=== PATIENT | male | born 1955 | race Caucasian/White ===

== ENCOUNTER → 2017-11-16 08:58 | Outpatient (CLI) | payer OTHER, SELFPAY ==
--- NOTE | 2017-11-16 09:04 | RAD_ITS ---
STUDY: X-RAY CHEST REASON FOR EXAM: Male, 62 years old. Mild intermittent asthma. TECHNIQUE: PA and lateral views of the chest. COMPARISON: June 11, 2015. FINDINGS: The lungs are clear and expanded. There is no demonstrated pleural abnormality. Normal size heart. Normal mediastinum and subha. Normal visualized pulmonary arteries. Normal visualized aortic arch and descending thoracic aorta. Normal visualized thoracic spine. Normal visualized ribs, clavicles, and shoulders. There is no demonstrated abnormality of the visualized soft tissue structures of the upper abdomen. RAD/Chest PA and Lateral IMPRESSION: No acute cardiopulmonary disease or major interval change. Electronically Signed: Andrei Magallanes DO at 17:03 EDT Tel [phone], Service support ,
== END ==
PROVIDERS: Family Provider Internal Medicine; PCP Internal Medicine; Visit Provider Internal Medicine
DX: J45.20 Mild intermittent asthma, uncomplicated (principal)
CPT/HCPCS: 71046

== ENCOUNTER → 2018-03-09 06:31 | Outpatient (CLI) | payer OTHER, SELFPAY ==
--- NOTE | 2018-03-09 07:00 | MRI_ITS ---
STUDY: MRI BRAIN WITH AND WITHOUT CONTRAST (ATTENTION INTERNAL AUDITORY CANALS - I.A.C.'s) REASON FOR EXAM: Male, 62 years old. Left ear tinnitus and pain TECHNIQUE: Standardized multiplanar fat and water weighted pulse sequences were obtained. 9 ml of Gadavist contrast material was administered intravenously for the contrast portion of the examination. COMPARISON: None. FINDINGS: Normal bilateral temporal bones. Normal bilateral internal auditory canals. There is no demonstrated intracanalicular or cisternal vestibular schwannoma (acoustic neuroma). There is no enhancement of the bilateral VIIth or VIIIth cranial nerves. Normal bilateral cochlea, vestibules and semicircular canals. Normal size of the ventricles and extra-axial spaces for the patient's age. Normal white matter tracts of the supratentorial brain. Normal bilateral basal ganglia. Normal thalami. Normal flow voids within the major intracranial circulation suggesting patency by spin echo criteria. Normal venous enhancement. There is no enhancing intra-axial or extra-axial abnormality. There is no extra-axial fluid accumulation. Normal sella turcica, pituitary gland, infundibular stalk, optic chiasm and hypothalamus. Normal tectal plate and pineal gland. Normal midbrain, cheyanne and medulla. Normal cerebellum. Normal basal cisterns. No demonstrated orbital abnormality, within the constraints of a routine brain study. Mild mucosal thickening within the bilateral ethmoid air cells Normal calvarium and skull base. Normal visualized soft tissue structures. Normal visualized upper cervical spine. MRI/Brain W/WO Contrast IMPRESSION: Normal unenhanced and enhanced MRI of the bilateral internal auditory canals (I.A.C's). Minor bilateral ethmoid sinus disease Electronically Signed: Ray Nj MD at 19:57 EDT , Service support ,
== END ==
PROVIDERS: Family Provider Internal Medicine; PCP Internal Medicine; Visit Provider Internal Medicine
DX: H93.12 Tinnitus, left ear (principal)
CPT/HCPCS: 70553; A9585

== ENCOUNTER → 2018-11-03 07:33 | Outpatient (CLI) | payer OTHER, SELFPAY ==
--- NOTE | 2018-11-03 07:37 | CT_ITS ---
STUDY: CT ABDOMEN AND PELVIS WITH CONTRAST REASON FOR EXAM: Male, 63 years old. Lower abdominal pain RADIATION DOSAGE (If Supplied By Facility): CTDIvol = ( 18.72 ) mGy, DLP = ( 1036.25 ) mGycm TECHNIQUE: Transaxial images were obtained from the dome of the diaphragm to the symphysis pubis without oral contrast. 100CC IV/Oral Isovue 300 was administered. Sagittal and coronal images were reconstructed. Individualized dose optimization techniques were used for this CT. COMPARISON: None. FINDINGS: The visualized lung bases are unremarkable. The visualized portions of the heart are within normal limits. Normal liver. Normal gallbladder and extrahepatic biliary system. Normal spleen. Lobulated large mass measuring 8 x 7 cm at the head of the pancreas. Normal bilateral adrenal glands. Normal right kidney. 3 mm nonobstructive stone in the left kidney. Normal visualized stomach. Normal small intestine. Diverticulosis of the colon. The appendix is visualized and appears normal. Normal abdominal aorta. Normal inferior vena cava. Normal retroperitoneum. Normal urinary bladder. Normal abdominal wall. Mild degenerative vertebral changes. CT/Abdomen/Pelvis WITH Contrast IMPRESSION: Large pancreatic head mass requiring further evaluation. Nonobstructive left renal stone. Colonic diverticulosis. Electronically Signed: Neel Duff DO at 19:16 EDT Tel [phone], Service support ,
== END ==
PROVIDERS: Family Provider Internal Medicine; PCP Internal Medicine; Referring Provider Internal Medicine; Visit Provider Internal Medicine
DX: R10.30 Lower abdominal pain, unspecified (principal)
CPT/HCPCS: 74177; Q9967

== ENCOUNTER → 2018-11-21 05:47 | Outpatient (CLI) | payer OTHER, SELFPAY ==
--- NOTE | 2018-11-21 06:00 | CT_ITS ---
STUDY: CT CHEST WITH CONTRAST REASON FOR EXAM: Male, 63 years old. Pancreatic mass. RADIATION DOSAGE (If Supplied By Facility): CTDIvol = ( 17.33 ) mGy, DLP = ( 786.82 ) mGycm TECHNIQUE: Transaxial imaging was performed following intravenous administration of 100cc IV Isovue 300. Individualized dose optimization techniques were used for this CT. COMPARISON: CT abdomen and pelvis November 03, 2018. Chest x-ray November 16, 2017 and June 11, 2015. FINDINGS: The lungs are normal. There is no demonstrated pleural abnormality. The heart is not enlarged. Coronary artery calcifications. No pericardial effusion. Normal mediastinum. Small mediastinal lymph nodes which are not pathologic by size criteria. Normal hilar regions. Normal enhanced pulmonary arteries. Normal aorta arch and descending thoracic aorta. Normal osseous structures. Postoperative changes left shoulder. Questionable 0.9 x 0.9 cm low-attenuation lesion in the junction right and left lobes of the liver which does not represent a simple cyst. If present this lesion was not seen on the prior CT scan. The abnormality is identified on axial image 111 series 2. Again noted is a large lobulated pancreatic head mass. CT/Chest WITH Contrast IMPRESSION: No acute findings in the chest. Coronary artery calcifications. Questionable subcentimeter low-attenuation lesion at the junction of the right and left lobes of the liver. Correlate with ultrasound. Previously identified large pancreatic head mass. Electronically Signed: Augie Cisneros MD at 7:45 EDT , Service support ,
[2018-11-21 06:11] LABS: CREATININE FINGERSTICK 1.4 mg/dL (0.70-1.30)
== END ==
PROVIDERS: Family Provider Internal Medicine; PCP Internal Medicine; Referring Provider Internal Medicine; Visit Provider Internal Medicine
DX: K86.9 Disease of pancreas, unspecified (principal)
CPT/HCPCS: 71260; Q9967

== ENCOUNTER → 2019-07-05 15:24 | Outpatient (CLI) | payer OTHER, SELFPAY ==
[2019-07-05 16:25] LABS: AST(SGOT) 20 U/L (15-37); Alanine Aminotransfer ALT/SGPT 44 U/L (16-61); Albumin, Serum 3.6 g/dL (3.2-5.0); Alkaline Phosphatase 109 U/L (45-117); Anion Gap 5 (5-15); BUN 12 mg/dL (7-18); BUN/Creat Ratio 16.6 RATIO (10-20); Calcium,Total 8.4 mg/dL (8.5-10.1); Chloride 106 mmol/L (98-107); Creatinine, Serum 0.72 mg/dL (0.70-1.30); EST Glomerular Filtration Rate 116 mL/min (>60); Est Glom Filt Rate - Afr Amer 140 mL/min (>60); Globulin 3.6 g/dL (2.2-4.2); Glucose 91 mg/dL (74-106); Potassium 3.8 mmol/L (3.5-5.1); Protein, Total 7.2 g/dL (6.4-8.2); Sodium Level 139 mmol/L (136-145)
== END ==
PROVIDERS: Family Provider Internal Medicine; PCP Internal Medicine; Referring Provider Internal Medicine; Visit Provider Internal Medicine
DX: R94.31 Abnormal electrocardiogram [ECG] [EKG] (principal)
CPT/HCPCS: 80053; 84484

== ENCOUNTER → 2019-09-12 10:18 | Outpatient (CLI) | payer OTHER, SELFPAY ==
[2019-09-12 13:00] LABS: Absolute Lymphocyte Count 1.13 X10^3/uL (0.83-4.51); Absolute Neutrophil Count 4.6 X10^3/uL (2.0-7.7); Basophil# 0.07 X10^3/uL; Basophil% 1.1 % (0-1); Eosinophil# 0.15 X10^3/uL; Eosinophils% 2.3 % (0-5); Hematocrit 43.6 % (40-54); Hemoglobin 14.2 g/dL (13.0-16.5); Lymphocyte # 1.13 X10^3/ul (4.0); Lymphocyte % 17.5 % (19-41); Mean Corp Hgb Conc 32.6 g/dL (32-36); Mean Corpuscular Hgb 36.9 pg (27.0-32.0); Mean Corpuscular Volume 113.2 fL (80-94); Mean Platelet Vol. 9.9 fl (6.2-12.0); Monocyte# 0.47 X10^3/uL; Monocyte% 7.3 % (0-10); NRBC Flagged by Analyzer 0 % (0-5); Neutrophil # 4.63 X10^3/uL (2.7-7.7); Neutrophil % 71.5 % (47-70); Platelet Count 375 K/mm3 (150-450); RBC Distribution Width CV 14.4 % (11.6-14.6); RBC Distribution Width SD 60.8 fl (35.1-43.9); Red Blood Count 3.85 M/mm3 (4.6-6.2); White Blood Count 6.5 K/mm3 (4.4-11.0)
[2019-09-12 13:36] LABS: ALB/GLOB Ratio 1.1 RATIO (0.9-2.4); AST(SGOT) 19 U/L (15-37); Alanine Aminotransfer ALT/SGPT 38 U/L (16-61); Albumin, Serum 3.7 g/dL (3.2-5.0); Alkaline Phosphatase 94 U/L (45-117); Anion Gap 4 (5-15); BUN 10 mg/dL (7-18); BUN/Creat Ratio 12.4 RATIO (10-20); Chloride 103 mmol/L (98-107); EST Glomerular Filtration Rate 103 mL/min (>60); Est Glom Filt Rate - Afr Amer 124 mL/min (>60); Globulin 3.4 g/dL (2.2-4.2); Glucose 92 mg/dL (74-106); Potassium 4.3 mmol/L (3.5-5.1); Protein, Total 7.1 g/dL (6.4-8.2); Sodium Level 136 mmol/L (136-145)
[2019-09-15 05:06] LABS: QNTFERON TB Mitogen Value > 10.00 IU/mL (.); QNTFERON TB Nil Value 0.01 IU/mL (.); QNTFERON TB1+ Ag Value 0.02 IU/mL (.); QNTFERON TB2+ Ag Value 0.01 IU/mL (.)
[2019-09-15 11:28] LABS: QNTIFERON TB Positive Criteria Negative (Negative)
== END ==
PROVIDERS: PCP Internal Medicine; Referring Provider Dermatology; Visit Provider Dermatology
DX: L40.0 Psoriasis vulgaris (principal); Z79.899 Other long term (current) drug therapy
CPT/HCPCS: 36415; 80053; 85025; 86480

== ENCOUNTER → 2020-01-23 11:38 | Outpatient (CLI) | payer OTHER, SELFPAY ==
--- NOTE | 2020-01-23 11:39 | RAD_ITS ---
STUDY: X-RAY - RIGHT SHOULDER REASON FOR EXAM: Male, 64 years old. Right shoulder pain, nki TECHNIQUE: 4 view(s) of the shoulder. COMPARISON: None. FINDINGS: There is moderate degenerative arthrosis of the glenohumeral articulation. Normal acromioclavicular joint. Normal acromion. Normal humeral head and visualized proximal humerus. The soft tissue structures are unremarkable. Right subclavian port free of complication RAD/Shoulder min 2 Views IMPRESSION: Moderate to severe right glenohumeral arthrosis Electronically Signed: Antony Bonner MD at 11:58 EDT , Service support ,
== END ==
PROVIDERS: PCP Internal Medicine; Referring Provider Internal Medicine; Visit Provider Internal Medicine
DX: M19.011 Primary osteoarthritis, right shoulder (principal)
CPT/HCPCS: 73030

== ENCOUNTER 2020-03-18 15:00 | Outpatient (RCR) | payer OTHER, SELFPAY ==
--- NOTE | 2020-01-30 10:58 | HP.PTEVAL_ITS ---
Patient's Visit Information YEISON COYNE is a 64 year old M referred to Physical Therapy by Dr. Lorna Loomis DO with a diagnosis of R frozen shoulder. Date of Evaluation: 01/30/20 Physical Therapist: Brett Nickerson, JAUNT, OCS, CSCS - Visit Plan Frequency: 3x /Week Duration: 4-6 Weeks Plan: 2-3x/week for 4-6 weeks for. 1. grade 1-2 joint mobs and distraction R g- h joint and grade 4 posterior mobs to tolerance. 2. ROM R shoulder. 3. 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 4. US nonthermal as needed R anterior shoulder. 5. activitiy mdofiication and MH - Subjective R shoulder hurts, 3 yrs ago felt sharp pain hrowing some firewood. Some ain since. The last year has gotten worse. H/o L RCR. Started to keep him up at night and that is when he needs to take action. Needs advy pm. Daily pain, constant, anterior shoulder 3/10 , gets up to 10/10 lifting arm. needs to walk up cabinet to put deodorant on. Is R handed. 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 Enjoys biking and lifting and stilld oes some of that at home with Oh yo machine resistance. Snaps and crackles when he stretches. Dresses Ok, sometimes pulls shirt over arm. Basic ADLs are gettign done, hard to reach behind him. Limited mobility. H/o impingememnt in R and sharp bone rubbing on tendons. - Pain R shoulder Pain Intensity (Out of 10): 3 Pain Intensity Range: 3, 10 - Objective Forward head and scap posture. Tender to palpation anterior joint line R shoulder. AROM R shoulder 120 flexion, 100 abd, 60 ext rotation and 45 IR at 80 abd. Passively numbers are flexion 150, abd 130, ext rot 65 adn IR 48. L shoulder is limited due to h/u RC surgery. Lots of crepitus in R shoulder iwth PROM and resisted testing. reflexes 1/3 bi and tri B. No sensation deficits to gross light touch. strength is 4- in abd and flexion, 3+ in ext rotation with crepitus, 4- IR. 4 bi and tric no pain. - ext rotation lag test. - drop arm. + R g-h scour test. - Goals Goal 1:: sleep without waking at night Goal Time Frame: 2-4 Weeks Goal 2:: UE R AROM to 140 flexion and 70 ext rotation without pain and 50% better subjectively Goal Time Frame: 4-6 Weeks Goal 3:: Quick Dash of 15 or less Goal Time Frame: 4-6 Weeks Goal 4:: I approp HEPO to manage condition Goal Time Frame: 4-6 Weeks - Rehabilitation Potential Physical Therapy Diagnosis: Likely degeneration in R shoulder leading to pain. Rehabilitation Potential: Questionable - Anticipated Interventions Patient/Client Instruction: Educate patient on: Condition, Plan of Care For the Purpose of:: To decrease pain, To increase ROM, To improve muscle performance and motor function, To increase tolerance to activity/condition/position Therapeutic Exercise to Include: Strength training, Postural training, Fl exibilty training, Neuromotor development, Passive ROM, Active ROM For the Purpose of:: To decrease pain, To increase ROM, To improve muscle performance and motor function, To increase tolerance to activity/condition/position Manual Therapy Techniques to Include: Mobilization, Passive ROM For the Purpose of:: To decrease pain, To increase ROM Thermo therapy (hot pack): Yes Ultrasound (thermal/non thermal): Yes For the Purpose of:: To decrease pain, To decrease swelling/inflammation Thank you for the opportunity to evaluate your patient. For Medicare and Medicare HMO plans, please review the plan of care and approve it. It will need to be FAXED BACK to us at [phone] for Medicare purposes. For Medicare only, by signing this I certify the plan of care. Please let me know if there are questions or concerns regarding this plan of care. Physician Signature: Date:
--- NOTE | 2020-03-18 15:33 | HP.PTREVAL_ITS ---
Dr. Lorna Loomis, DO, It has been my pleasure to treat YEISON COYNE over the last 9 visits for R frozen shoulder. Please see the progress note below for an update on the physical therapy plan of care! Subjective: Shoulder not 100%. Better though. Getting stronger adn more functional. can shampoo hair better, deodorant is easier. Elevation is better but not great. Has been tandem biking [address] and it does make shoulder sore. Saw Vladislav two weeks ago and wanted to finish therapy and get recommendation. Reaching up is still a challenege and walks it up the wall. Push mowing can still cause pain. Sleep is better with management of postiion. Objective/Function: AROM 120 flexion, 90 abd, 70 ext rotation, L5 IR tight feeling. PROM 152 flexion, 120 abduction, 70 et rotation, 50 IR at 90 abd all iwth firm endfeel and alot of crepitus. Strength is 4- flexion, 4- ext rotation, 4 IR, Painful with flexion and abduction. Overall slightly improved measurements, improving function adn appropriate attitude. Likely much degeneration in shoulder adn I don't see evidence of tear on R. Appropriate to continue for progression of strengtha dn continued stretch. Fair prognosis Plan Plan: 2x week for 4 weeks... 1. mobs and stretching R shoulder rotations and flexion/abd. 2. Spend time in gym teaching posturala dn upper body strength adn core strength on machines and progress to I. Pt can do LE himself and ask questions if he has them. Work toward full progream with list. Goals Goal 1:: sleep without waking at night Goal Time Frame: 2-4 Weeks Goal Progress: Progressing, approp Goal 2:: UE R AROM to 140 flexion and 70 ext rotation without pain and 50% better subjectively Goal Time Frame: 4-6 Weeks Goal Progress: Progressing, slowly, appr Goal 3:: Quick Dash of 15 or less Goal Time Frame: 4-6 Weeks Goal Progress: progressing, approp Goal 4:: I approp HEPO to manage condition Goal Time Frame: 4-6 Weeks Goal Progress: Goal Met Goal 5:: I gym program to continue progress on own Goal Time Frame: 2-4 Weeks Goal Progress: NEW GOAL Anticipated Interventions Patient/Client Instruction: Educate patient on: Condition, Plan of Care For the Purpose of:: To decrease pain, To increase ROM, To improve muscle perf ormance and motor function, To increase tolerance to activity/condition/position Therapeutic Exercise to Include: Strength training, Postural training, Flexibilty training, Neuromotor development, Passive ROM, Active ROM For the Purpose of:: To decrease pain, To increase ROM, To improve muscle performance and motor function, To increase tolerance to activity/condition/position Manual Therapy Techniques to Include: Mobilization, Passive ROM For the Purpose of:: To decrease pain, To increase ROM Thermo therapy (hot pack): Yes Ultrasound (thermal/non thermal): Yes For the Purpose of:: To decrease pain, To decrease swelling/inflammation Please do not hesitate to contact me at [phone] by phone or if you have questions or concerns regarding this new plan of care! Sincerely, Brett Nickerson, DPT, OCS, CSCS
--- NOTE | 2020-04-03 14:58 | HP.PT.NRP ---
YEISON COYNE was seen in my office for initial evaluation on 01/30/20. The following Plan of Care was established for this patient: Initial Frequency: 3x /Week Initial Duration: 4-6 Weeks Patient/Client Instruction: Educate patient on: Condition, Plan of Care For the Purpose of:: To decrease pain, To increase ROM, To improve muscle performance and motor function, To increase tolerance to activity/condition/position Therapeutic Exercise to Include: Strength training, Postural training, Flexibilty training, Neuromotor development, Passive ROM, Active ROM For the Purpose of:: To decrease pain, To increase ROM, To improve muscle performance and motor function, To increase tolerance to activity/condition/position Manual Therapy Techniques to Include: Mobilization, Passive ROM For the Purpose of:: To decrease pain, To increase ROM Thermo therapy (hot pack): Yes Ultrasound (thermal/non thermal): Yes For the Purpose of:: To decrease pain, To decrease swelling/inflammation This patient was last seen in our office 03/18/20. Pertinent comments regarding their Physical therapy will appear below: Pt seen 90 visits and was 40% better but still very painful in the shoulder. Sent back to [facility] for further diagnostics. Had MRI and has tendon tears and sent to Dr. Hannon. Will discontinue PT at this point. Would be happy to see again in the future if found appropriate by Ortho. At this point I will be discontinuing this patient from physical therapy. I would be happy to see this patient again in the future if found appropriate by the physician. Thank you! Brett Nickerson, DPT, OCS, CSCS
== END 2020-03-18 19:00 | disposition home or self-care (01) ==
LOC: PT 15:00
PROVIDERS: PCP Internal Medicine; Referring Provider Internal Medicine; Visit Provider Internal Medicine
DX: M75.01 Adhesive capsulitis of right shoulder (principal)
CPT/HCPCS: 97110; 97140; 97162; 97164

== ENCOUNTER → 2020-03-29 10:57 | Outpatient (CLI) | payer OTHER, SELFPAY ==
--- NOTE | 2020-03-29 11:02 | MRI_ITS ---
STUDY: MRI RIGHT SHOULDER REASON FOR EXAM: Right shoulder pain for 3 years, decreased range of motion, injury. TECHNIQUE: Standardized fat and water weighted pulse sequences were obtained in all 3 orthogonal planes. COMPARISON: Radiographs 01/23/2020. FINDINGS: There is supraspinatus tendinosis and a small high-grade partial thickness tear of the articular surface of the distal anterior supraspinatus tendon at the greater tuberosity insertion (T2 coronal image 13) measuring 0.25 cm in length. There is infraspinatus tendinosis (T2 coronal images 5-7) without discrete tendon tear. There is mild subscapularis tendinosis and a small intrasubstance partial-thickness tear of the distal supraspinatus tendon (proton-density axial images 13, 14) measuring 0.7 cm in length. Normal teres minor tendon. Normal supraspinatus muscle. There is a low-grade strain of the infraspinatus muscle (T2 coronal images 1, 2). Normal subscapularis muscle. Normal teres minor muscle. There is glenohumeral arthrosis with marginal osteophytes of the humeral head and chondral thinning (T2 coronal images 7-12). There is a glenohumeral joint effusion with synovitis, especially at the posterior aspect of the joint (T2 sagittal images 12-14). There is a small intra-articular body in the subscapularis recess (T2 axial image 12) measuring 0.7 cm in greatest dimension. There is mild cystic change of the greater tuberosity. There is incidental persistence of red marrow in the proximal humerus. There is a tear with nonvisualization of the intracapsular long biceps tendon. There is degeneration of the labrum. There is mild acromioclavicular arthrosis without substantial undersurface osteophytes (T2 sagittal image 12). There is a Type II morphology (curved), with a neutral orientation. There is no subacromial-subdeltoid bursal fluid. Normal visualized coracohumeral and coracoacromial ligaments. Normal deltoid muscle. Normal trapezius muscle. MRI/Upper Ext Joint Only(Routine) IMPRESSION: Small partial-thickness tear and tendinosis of the supraspinatus tendon. Small intrasubstance partial-thickness tear and mild tendinosis of the subscapularis tendon. Infraspinatus tendinosis. Low-grade strain of the infraspinatus muscle. Glenohumeral arthrosis with degeneration of the labrum and small intra-articular body of the subscapularis recess. Tear of the long biceps tendon. Mild acromioclavicular arthrosis. Glenohumeral joint effusion with synovitis. Electronically Signed: Emir Ramírez MD at 12:25 EDT Tel , Service support ,
== END ==
PROVIDERS: PCP Internal Medicine; Referring Provider Internal Medicine; Visit Provider Internal Medicine
DX: M75.00 Adhesive capsulitis of unspecified shoulder (principal)
CPT/HCPCS: 73221

== ENCOUNTER → 2020-11-06 09:55 | Outpatient (CLI) | payer OTHER, SELFPAY ==
[2020-11-06 12:30] LABS: Hematocrit 39.3 % (40-54); Hemoglobin 13.1 g/dL (13.0-16.5); Mean Corp Hgb Conc 33.3 g/dL (32-36); Mean Corpuscular Hgb 39.5 pg (27.0-32.0); Mean Corpuscular Volume 118.4 fL (80-94); Mean Platelet Vol. 9.4 fl (6.2-12.0); POSITIVE MORPHOLOGY YES; Platelet Count 528 K/mm3 (150-450); RBC Distribution Width CV 15.2 % (11.6-14.6); RBC Distribution Width SD 66.5 fl (35.1-43.9); Red Blood Count 3.32 M/mm3 (4.6-6.2); White Blood Count 3.4 K/mm3 (4.4-11.0)
[2020-11-06 12:31] LABS: Scan Indicated on CBC? Y/N YES- FLAGS NOTED
[2020-11-06 13:16] LABS: Ferritin 84 ng/mL (26-388); Iron 95 ug/dL (65-175)
[2020-11-07 16:08] LABS: Endomysial Antibody IgA Negative (Negative)
[2020-11-07 18:42] LABS: Immunoglobulin A 274 mg/dL (61-437); t-Transglutaminase IgA <2 U/mL (0-3)
== END ==
PROVIDERS: PCP Internal Medicine; Referring Provider Internal Medicine Gastroenterology; Visit Provider Internal Medicine Gastroenterology
DX: D50.9 Iron deficiency anemia, unspecified (principal)
CPT/HCPCS: 36415; 82728; 82784; 83516; 83540; 85027; 86255

== ENCOUNTER → 2020-11-11 13:47 | Outpatient (CLI) | payer OTHER, SELFPAY | PROVIDERS: PCP Internal Medicine; Referring Provider Internal Medicine Gastroenterology; Visit Provider Internal Medicine Gastroenterology | DX: Z11.59 Encounter for screening for other viral diseases (principal) | CPT/HCPCS: 87635; C9803; U0002 ==

== ENCOUNTER → 2020-11-13 13:22 | Outpatient (CLI) | payer OTHER, SELFPAY ==
--- NOTE | 2020-11-13 13:23 | CT_ITS ---
STUDY: CTA CHEST REASON FOR EXAM: Male, 65 years old. ELEVATED D-DIMER RADIATION DOSAGE (If Supplied By Facility): CTDIvol = ( 10.97 ) mGy, DLP = ( 411.24 ) mGycm TECHNIQUE: The examination was performed with the intravenous administration of IV 100mL Isovue-370. Post-processing of the angiographic images was performed, with multiplanar reformation and 3D reconstruction. Individualized dose optimization techniques were used for this CT. COMPARISON: 11/21/[address] of the abdomen dated 11/03/2018 FINDINGS: Normal enhancement of the main pulmonary artery and right and left pulmonary arteries. Normal enhancement of the bilateral peripheral pulmonary arteries. There is no demonstrated pulmonary embolism. There is atherosclerotic calcification of the aortic arch and descending thoracic aorta. There is no demonstrated aortic dissection. There are calcifications of the coronary arteries. Normal mediastinum. Normal hilar regions. Normal visualized trachea and bronchi. There are stable subpleural groundglass opacities within the lower lobes. There is no new focal consolidation. Normal chest wall structures. There are degenerative changes of thoracic spine. There is a right shoulder arthroplasty. There are postsurgical changes of the left humeral head. The limited images of the upper abdomen demonstrate a 4.3 x 5.7 cm partially cystic mass within the pancreatic head that has decreased in size since the prior CT. There are two indeterminate 1.0 low attenuation foci within the left hepatic lobe (image 28 series 2). There are peripheral calcifications of the abdominal aorta. CT/CTA Chest W/WO Contrast IMPRESSION: No demonstrated pulmonary embolism or arterial dissection. 4.3 x 5.7 cm pancreatic head mass which has decreased in size since prior CT dated 11/21/2018. Indeterminate low-attenuation foci within the left hepatic lobe, consider MRI with contrast for further characterization. Atherosclerosis. Electronically Signed: Effie Chacko MD at 14:45 EDT Tel , Service support ,
== END ==
PROVIDERS: PCP Internal Medicine; Referring Provider Internal Medicine; Visit Provider Internal Medicine
DX: R79.89 Other specified abnormal findings of blood chemistry (principal)
CPT/HCPCS: 71275

== ENCOUNTER 2021-05-20 16:26 | Inpatient (IN) | payer OTHER, MEDICARE, SELFPAY ==
[2021-05-20] VITALS (22 sets, daily range): BP systolic 85–179; BP diastolic 57–164; PULSE 62–135; RESP 7–102; TEMP 36.1–36.8; O2SAT 89–100; BMI 25.1; BMI 26.6
--- NOTE | 2021-05-20 16:30 | ED.RN ---
UNABLE TO DO NIH AT THIS TIME, DR PEDRO PT.
[2021-05-20] MEDS: Rocuronium Bromide 50 MG/5 ML Vial IV (16:37)
[2021-05-20] MEDS: Etomidate 20 MG/10 ML Vial IV (16:37)
--- NOTE | 2021-05-20 16:37 | CT_ITS ---
We are attempting to reach an attending provider to discuss findings. An addendum with communication details will be sent when the communication is complete. STUDY: CT BRAIN WITHOUT CONTRAST REASON FOR EXAM: Male, 66 years old. CVA RADIATION DOSAGE (If Supplied By Facility): CTDIvol = ( ) mGy, DLP = ( ) mGycm TECHNIQUE: Transaxial CT imaging of the brain was performed without administration of intravenous contrast material. Individualized dose optimization techniques were used for this CT. COMPARISON: MRI brain 03/09/2018. FINDINGS: Normal soft tissue structures. Normal calvarium. There is mild cerebral atrophy with widening of the extra-axial spaces and ventricular dilatation. Normal white matter tracts of the cerebral hemispheres. Normal basal ganglia and thalami. Normal brainstem. Normal cerebellum. There is no intracranial hemorrhage. No acute territorial infarct. Chronic left cerebellar infarcts. Normal visualized paranasal sinuses. CT/STROKE Brain/Head without Cont IMPRESSION: 1. No acute findings. 2. Chronic left cerebellar lacunar infarcts. Electronically Signed: Suyapa Padilla MD at 17:06 EDT Tel , Service support ,
--- NOTE | 2021-05-20 16:42 | EKG12_ITS ---
Test Reason : Blood Pressure : / mmHG Vent. Rate : 084 BPM Atrial Rate : 084 BPM P-R Int : 192 ms QRS Dur : 092 ms QT Int : 358 ms P-R-T Axes : 041 -61 -04 degrees QTc Int : 423 ms Normal sinus rhythm Left axis deviation Low voltage QRS Inferior infarct , age undetermined Anterolateral infarct , age undetermined Abnormal ECG Confirmed by ROYAL DELGADO, SHRUTHI ([id number]), editor managing director BENITA VILLEGAS ([id number]) on 05/21/2021 8:57:42 AM Referred By: MARYJO Confirmed By:SHRUTHI PAIGE MD
--- NOTE | 2021-05-20 16:48 | CT_ITS ---
We are attempting to reach an attending provider to discuss findings. An addendum with communication details will be sent when the communication is complete. STUDY: CTA HEAD AND NECK WITH CONTRAST REASON FOR EXAM: Male, 66 years old. CVA RADIATION DOSAGE (If Supplied By Facility): CTDIvol = ( ) mGy, DLP = ( ) mGycm TECHNIQUE: CT angiography was performed with a multi-detector CT scanner. Data acquisition was obtained from the skull base through the vertex following intravenous administration of IV 100mL Isovue-370. MIP images were reconstructed from the axial data set. Post-processing of the angiographic images was performed, with multiplanar reformation and 3D reconstruction. Individualized dose optimization techniques were used for this CT. COMPARISON: No relevant priors. FINDINGS: Normal bilateral petrous carotid arteries. Atherosclerotic calcification of the cavernous carotid arteries without stenosis. Normal anterior cerebral arteries. Normal intact anterior communicating artery (ACOM). Normal M1 and M2 segments of the middle cerebral arteries, with normal M1 bifurcations. There is non-visualization of the right posterior communicating artery (PCOM). There is non-visualization of the left posterior communicating artery (PCOM). Normal bilateral vertebral arteries. Normal basilar artery with a normal basilar bifurcation. The visualized bilateral superior cerebellar (SCA) arteries are normal. Normal bilateral P1, P2 and visualized P3 segments of the posterior cerebral arteries. There is no demonstrated aneurysm of the [place] of [place]. There is no demonstrated abnormality of the visualized brain. AORTIC ARCH: Normal visualized aortic arch. Normal origins of the brachiocephalic, left common carotid, and left subclavian arteries. RIGHT CAROTID ARTERIES: Normal right common carotid artery (CCA). Moderate atherosclerotic calcification of the carotid bulb without stenosis. Mild atherosclerotic calcification of the origin of the right ICA without stenosis. Normal visualized cervical portion of the right internal carotid artery. Normal origin of the right external carotid artery (ECA). LEFT CAROTID ARTERIES: Normal left common carotid artery (CCA). Mild atherosclerotic calcification of the carotid bulb without stenosis. Normal origin of the left internal carotid (ICA) artery without stenosis. Normal visualized cervical portion of the left internal carotid artery. Normal origin of the left external carotid artery (ECA). VERTEBRAL ARTERIES: Normal bilateral vertebral arteries. CT/STROKE CTA Head AND Neck W/Con IMPRESSION: Normal CTA Head and neck with contrast. Electronically Signed: Suyapa Padilla MD at 17:38 EDT Tel , Service support ,
[2021-05-20 16:55] LABS: Absolute Neutrophil Count 4.3 X10^3/uL (2.0-7.7); Basophil# 0.06 X10^3/uL; Basophil% 0.9 % (0-1); Eosinophil# 0.01 X10^3/uL; Eosinophils% 0.1 % (0-5); Hematocrit 42.5 % (40-54); Hemoglobin 14.8 g/dL (13.0-16.5); Lymphocyte % 27.7 % (19-41); Mean Corp Hgb Conc 34.8 g/dL (32-36); Mean Corpuscular Hgb 40.4 pg (27.0-32.0); Mean Corpuscular Volume 116.1 fL (80-94); Mean Platelet Vol. 9.3 fl (6.2-12.0); Monocyte# 0.55 X10^3/uL; NRBC Flagged by Analyzer 0 % (0-5); Neutrophil # 4.31 X10^3/uL (2.7-7.7); Neutrophil % 62.7 % (47-70); Platelet Count 557 K/mm3 (150-450); RBC Distribution Width CV 14.6 % (11.6-14.6); RBC Distribution Width SD 62.8 fl (35.1-43.9); Red Blood Count 3.66 M/mm3 (4.6-6.2); White Blood Count 6.9 K/mm3 (4.4-11.0)
--- NOTE | 2021-05-20 16:57 | ED.VIS.STROK ---
HPI History of Present Illness Chief Complaint: Neuro S/Sx Informant: family, friend and EMS Narrative Narrative: 66-year-old male arriving to the emergency department via EMS. EMS requested a prehospital stroke team. Reportedly the patient traveled to [place] with a coworker and completed a sale. They went to a [employer] restaurant to celebrate this. He had 2 margaritas. Coworker states that he did not seem intoxicated. He was driving home and they were having normal conversation when the patient suddenly began to swerve and go unresponsive. Coworkers able to get the car stop and called for EMS. EMS states that he is vomiting profusely. They report he is able to open his eyes to sternal rub. They report that he was attempting to remove support devices/lines. After initial examination and airway stabilization the tells me that he has had a history of pancreatic cancer and follows with Dr. Kieran bauer. He had a Whipple procedure. He has been cancer free for 2 years. While undergoing the Whipple procedure he had a small heart attack and had postoperative atrial fibrillation for which she is on Xarelto and she states that he is taking this regularly. [facility] Medical History (Updated 05/20/21 @ 18:[address] Osiel Pedraza DO) Atrial fibrillation Pancreatic cancer Medical History unable to obtain Home Medications Aspir-81 81 mg PO/SL BID 05/20/21 [History Last Taken Unknown] carvedilol 3.25 mg PO DAILY 05/20/21 [History Last Taken Unknown] citalopram 10 mg PO DAILY 05/20/21 [History Last Taken Unknown] hydroxyurea 1,500 mg PO DAILY 05/20/21 [History Last Taken Unknown] lisinopril 2.5 mg PO DAILY 05/20/21 [History Last Taken Unknown] omeprazole 20 mg PO DAILY 05/20/21 [History Last Taken Unknown] rivaroxaban [Xarelto] 20 mg PO DAILY 05/20/21 [History Last Taken Unknown] Allergy/AdvReac Type Severity Reaction Status Date / Time Unable to Assess Allergy Verified 05/20/21 16:48 Family History unable to obtain Surgical History (Updated 05/20/21 @ 16:[address] Osiel Pedraza DO) History of Whipple procedure Surgical History unable to obtain Social History (Updated 05/20/21 @ 16:[address] Osiel Pedraza, DO) current gender identity: male Smoking Status: Never smoker alcohol intake: current ROS ROS ED Review of Systems ROS Unobtainable: due to endotracheal tube and due to mental status EXAM Physical Exam Narrative Exam Narrative: Patient has a significant amount of emesis on him and in his airway Const Vital Signs: 05/20/21 16:37 05/20/21 16:39 05/20/21 16:43 Temperature 98 F Temperature Source Temporal Pulse Rate 79 106 H Respiratory Rate 7 L 13 Respiratory Effort Mechanically Ventilated Blood Pressure 144/91 H Blood Pressure Mean 108 Pulse Ox 89 100 Oxygen Delivery Method Room Air Mechanical Ventilator Fraction of Inspired Oxygen (FIO2) 05/20/21 16:47 05/20/21 17:12 05/20/21 17:27 Temperature 98 F Temperature Source Temporal Pulse Rate 82 82 78 Respiratory Rate 18 18 16 Respiratory Effort Blood Pressure 174/97 H 174/97 H 179/164 H Blood Pressure Mean 122 122 169 Pulse Ox 100 100 98 Oxygen Delivery Method Mechanical Ventilator Mechanical Ventilator Mechanical Ventilator Fraction of Inspired Oxygen (FIO2) 05/20/21 17:30 05/20/21 17:32 05/20/21 18:00 Temperature 96.9 F L Temperature Source Core Pulse Rate 78 79 88 Respiratory Rate 16 14 14 Respiratory Effort Blood Pressure 179/164 H 147/127 H Blood Pressure Mean 169 133 Pulse Ox 98 97 96 Oxygen Delivery Method Mechanical Ventilator Mechanical Ventilator Fraction of Inspired Oxygen (FIO2) 100 05/20/21 18:02 05/20/21 18:18 05/20/21 18:29 Temperature 97.5 F L 97.4 F L Temperature Source Core Core Pulse Rate 83 78 76 Respiratory Rate 20 H 102 H 14 Respiratory Effort Blood Pressure 102/69 85/57 L 96/67 Blood Pressure Mean 80 66 76 Pulse Ox 94 94 97 Oxygen Delivery Method Mechanical Ventilator Mechanical Ventilator Mechanical Ventilator Fraction of Inspired Oxygen (FIO2) Positive well nourished and well developed General Appearance ED: well developed HEENT Reports normocephalic, head/scalp atraumatic, TM's clear and moist mucous membranes atraumatic Tympanic Membrane ED: Yes TM's clear Eyes PERRL and EOMs intact bilaterally Neck no lymphadenopathy, supple and no JVD Resp normal respiratory effort Auscultation: rhonchi Cardio regular rate, regular rhythm and no murmurs Rate: regular rate Rhythm: regular rhythm GI normal to inspection, nondistended, normoactive bowel sounds and non-tender GI Narrative: Healed midline incision Palpation: soft Back/Spine no CVA tenderness and normal ROM Extremity normal to inspection General Extremety ED: Negative for edema General Extremity: Negative for edema Neuro Karlos Coma Scale: document GCS findings To Pain Withdraws to Pain None 7 Sensorium / Orientation: lethargic Psych Mood & Affect: tearful Skin no rashes or lesions noted and no wounds STROKE Vital Signs/Narrative: Vital Signs Temp Pulse Resp BP Pulse Ox 05/20/21 18:29 97.4 F L 76 14 96/67 97 05/20/21 18:18 97.5 F L 78 102 H 85/57 L 94 05/20/21 18:02 83 20 H 102/69 94 05/20/21 18:00 96.9 F L 88 14 147/127 H 96 05/20/21 17:32 79 14 97 05/20/21 17:30 78 16 179/164 H 98 05/20/21 17:27 78 16 179/164 H 98 05/20/21 17:12 82 18 174/97 H 100 05/20/21 16:47 98 F 82 18 174/97 H 100 05/20/21 16:43 106 H 13 144/91 H 100 05/20/21 16:37 98 F 79 7 L 89 MDM MDM MDM Narrative Medical decision making narrative: The patient has a GCS of 7. It does not appear that he is protecting his airway. Decision to intubate was made. Patient received etomidate and rocuronium. A 8-0 endotracheal tube was placed on the first attempt without difficulty. There was a significant mount of emesis in the oropharynx and around the cords raising concern for aspiration. Tube was secured at 22 cm at the lips. A orogastric tube was placed. Patient was then taken directly to CT. arrived during CT and I was able to speak with her briefly. CT the brain shows old cerebellar stroke. CTA is negative. Basic blood work showed an alcohol level of 368. Patient received a dose of Unasyn. Patient was placed on propofol and fentanyl for sedation. Patient will be admitted into the ICU. Lab Data Attestation: I reviewed the patient's lab results. Labs: Laboratory Results - last 24 hr 05/20/21 05/20/21 05/20/21 16:40 16:40 16:40 WBC 6.9 RBC 3.66 L Hgb 14.8 Hct 42.5 MCV 116.1 H MCH 40.4 H MCHC 34.8 RDW Std Deviation 62.8 H RDW Coeff of Maryam 14.6 Plt Count 557 H MPV 9.3 Immature Gran % (Auto) 0.600 Neut % (Auto) 62.7 Lymph % (Auto) 27.7 [place] % (Auto) 8.0 Eos % (Auto) 0.1 Baso % (Auto) 0.9 Absolute Neuts (auto) 4.3 Absolute Lymphs (auto) 1.90 Nucleated RBC % 0 PT 14.0 INR 1.1 APTT 36.8 H Sodium 142 Potassium 3.6 Chloride 108 H Carbon Dioxide 25.0 Anion Gap 9 BUN 9 Creatinine 1.05 Estim Creat Clear Calc 69.20 Est GFR (MDRD) Af Amer 91 Est GFR (MDRD) Non-Af 75 BUN/Creatinine Ratio 8.6 L Glucose 152 H Calcium 9.2 Troponin I High Sens 6 Ethyl Alcohol 05/20/21 16:40 WBC RBC Hgb Hct MCV MCH MCHC RDW Std Deviation RDW Coeff of Maryam Plt Count MPV Immature Gran % (Auto) Neut % (Auto) Lymph % (Auto) [place] % (Auto) Eos % (Auto) Baso % (Auto) Absolute Neuts (auto) Absolute Lymphs (auto) Nucleated RBC % PT INR APTT Sodium Potassium Chloride Carbon Dioxide Anion Gap BUN Creatinine Estim Creat Clear Calc Est GFR (MDRD) Af Amer Est GFR (MDRD) Non-Af BUN/Creatinine Ratio Glucose Calcium Troponin I High Sens Ethyl Alcohol 368.0 H* ABG Data ABG results: ABG 05/20/21 17:43 Specimen Type ART Sample Site R Brach pH 7.31 L Bicarbonate Actual 21.4 L Total CO2 23 Base Excess -5 L O2 Saturation 99 O2 % 60 ABG pCO2 42.5 ABG pO2 146 H Eduardo Test N/A Respiration Rate 14 O2 Delivery Device Adult Vent Vent Mode AC Tidal Volume 450 POC PEEP 5 Radiography Diagnostic Testing: Clinical Impression(s) from Imaging Studies Brain CT 05/20/21 16:37 IMPRESSION: 1. No acute findings. 2. Chronic left cerebellar lacunar infarcts. Electronically Signed: Suyapa Padilla MD at 17:06 EDT Tel , Service support , ADDENDUM: 05/20/21 1731 IMPRESSION: 1. No acute findings. 2. Chronic left cerebellar lacunar infarcts. N.B. : The above Results were Read Back by Suyapa Padilla MD to Osiel Pedraza MD , , and understanding confirmed on 05/20/2021 17:24:52 (ET). Electronically Signed: Suyapa Padilla MD at 17:06 EDT Tel , Service support , Head/Neck CTA 05/20/21 16:48 IMPRESSION: Normal CTA Head and neck with contrast. Electronically Signed: Suyapa Padilla MD at 17:38 EDT Tel , Service support , ADDENDUM: 05/20/21 1749 IMPRESSION: Normal CTA Head and neck with contrast. N.B. : The above Results were Read Back by Suyapa Padilla MD to Osiel Pedraza MD, MD, and understanding confirmed on 05/20/2021 17:42:53 (ET). Electronically Signed: Suyapa Padilla MD at 17:38 EDT Tel , Service support , Chest X-Ray 05/20/21 17:20 IMPRESSION: ET tube terminates 1.5 cm above the richa. No acute findings. Electronically Signed: Suyapa Padilla MD at 17:59 EDT Tel , Service support , Critical Care Time Critical Care Time: Yes Critical care time (excluding procedures): 30-74 minutes (35 min), Including time spent:, Discussing w/Patient &/or Family/Drapery Operator, Discussing w/Consultants, Arranging Admission or Transfer and Performing Direct Patient Care at Bedside Discharge Plan Dx/Rx/DC Orders Clinical Impression: Acute respiratory failure, Alcohol intoxication, Encephalopathy acute, Aspiration into airway Disposition Disposition: Acute Care [facility]
[2021-05-20 17:00] LABS: International Normalized Ratio 1.1
[2021-05-20 17:01] LABS: Partial Thromboplast Time 36.8 Seconds (24.1-36.2)
[2021-05-20 17:13] LABS: Anion Gap 9 (5-15); BUN 9 mg/dL (7-18); BUN/Creat Ratio 8.6 RATIO (10-20); Calcium,Total 9.2 mg/dL (8.5-10.1); Chloride 108 mmol/L (98-107); Creatinine, Serum 1.05 mg/dL (0.70-1.30); EST Glomerular Filtration Rate 75 mL/min (>60); Est Glom Filt Rate - Afr Amer 91 mL/min (>60); Glucose 152 mg/dL (74-106); Potassium 3.6 mmol/L (3.5-5.1); Sodium Level 142 mmol/L (136-145); Troponin-I HS 6 pg/mL (3.0-78.0)
--- NOTE | 2021-05-20 17:20 | RAD_ITS ---
STUDY: X-RAY CHEST REASON FOR EXAM: Male, 66 years old. Neuro deficit, acute, stroke suspected TECHNIQUE: Single frontal view of the chest. COMPARISON: 11/21/2018. FINDINGS: ET tube terminates 1.5 cm above the richa. Nasogastric tube terminates in stomach. The lungs are clear and expanded. There is no demonstrated pleural abnormality. Normal size heart. Normal mediastinum and subha. Normal visualized pulmonary arteries. Normal visualized aortic arch and descending thoracic aorta. Prior right shoulder reverse arthroplasty. RAD/Chest 1 View IMPRESSION: ET tube terminates 1.5 cm above the richa. No acute findings. Electronically Signed: Suyapa Padilla MD at 17:59 EDT Tel , Service support ,
--- NOTE | 2021-05-20 17:26 | CM.ED ---
SW Note Referral Source: Case Find Referral Reason: Stroke Alert SW provided emotional support to patient's . SW remains available if needs or issues arise. Plan: Emotional support provided Anali GILLILAND
[2021-05-20] MEDS: Midazolam 5 MG/ML Syringe IV ×2 (17:31→20:24)
[2021-05-20] MEDS: Propofol 10MG/Ml 1,000 MG/100 ML Bottle 4.6 MG CONT INF (17:32)
[2021-05-20 17:50] LABS: Base Excess -5 mmol/L (-2 to +2); Bicarbonate 21.4 mmol/L (22-26); Blood Gas Specimen Type ART; FI02 60; Mode AC; O2 Delivery Device Adult Vent; PEEP 5; PO2 146 mmHG (75-100); RR 14; SITE R Brach; SO2 99 % (95-99); Total Carbon Dioxide 23 mmol/L; Vt 450; pCO2 42.5 mmHg (35-45); pH 7.31 (7.35-7.45)
--- NOTE | 2021-05-20 18:54 | EKG12_ITS ---
Test Reason : DYSRHYTHMIA Blood Pressure : / mmHG Vent. Rate : 079 BPM Atrial Rate : 079 BPM P-R Int : 196 ms QRS Dur : 084 ms QT Int : 382 ms P-R-T Axes : 053 -49 -07 degrees QTc Int : 438 ms Normal sinus rhythm Left axis deviation Low voltage QRS Inferior infarct , age undetermined Anterolateral infarct , age undetermined Abnormal ECG Confirmed by ROYAL DELAGDO, SHRUTHI ([id number]), acquisition editor BENITA VILLEGAS ([id number]) on 05/21/2021 8:58:25 AM Referred By: LIVIA Confirmed By:SHRUTHI PAIGE MD
[2021-05-20] MEDS: fentaNYL 100 MCG/2 ML Ampul 50 MCG IV (18:59)
--- NOTE | 2021-05-20 19:07 | PCM.HP.STD ---
HPI - General General Date of Admission: 05/20/21 Date of Service: 05/20/21 Chief Complaint: Unresponsiveness, acute respiratory failure HPI Narrative YEISON COYNE, is a 66 M who presents to the emergency room at [facility] after being brought in by squad. Patient was driving with a friend today and suddenly became unresponsive, the friend was able to guide the car off the road and called 911, the squad noted that the patient was having episodes of vomiting, he was brought to the emergency room and evaluated by the emergency room physician, due to airway concerns, patient was intubated emergently. Before the intubation according to the emergency room physician, patient was following some commands such as moving his arms, he would not move his legs however. A stroke team team was called on the patient and due to the fact the patient was on Xarelto chronically, TPA was not given, CT of the brain showed mild cerebral atrophy plus some chronic left cerebellar infarcts. No acute territorial infarct was noted to be present. CTA of the head and neck were unremarkable, patient's chest x-ray did not show an infiltrate but there was concern that the patient may have aspirated and so he was placed on IV antibiotics. Labs were obtained, patient's CBC was remarkable for a platelet count of 557-patient had a known history of thrombocytosis and was being treated by an oncologist as an outpatient-patient's initial blood gas on the ventilator showed a pH of 7.31, PCO2 is 42.5, PO2 was 146. Patient's CHEM panel was unremarkable, and his blood alcohol level was 368. EKG was performed which showed a normal sinus rhythm there was some ST-T wave changes in the inferior leads but I felt that the EKG was somewhat of a poor quality and so the EKG will be repeated when the patient reaches ICU. Patient's troponin was 6. I talked with the patient's family in the emergency room which included his son and , stated that he would be a full code at this time. Patient will be admitted to ICU for acute respiratory failure and possible ischemic CVA, I will keep the patient on IV antibiotics due to concerns of aspiration, patient will need an MRI or if this cannot be done, a CT of the brain tomorrow to try and verify if the patient has had a stroke. [facility] Medical History (Updated 05/20/21 @ 18:[address] Osiel Pedraza DO) Atrial fibrillation Pancreatic cancer Medical History unable to obtain Home Medications Aspir-81 81 mg PO/SL BID 05/20/21 [History Last Taken Unknown] carvedilol 3.25 mg PO DAILY 05/20/21 [History Last Taken Unknown] citalopram 10 mg PO DAILY 05/20/21 [History Last Taken Unknown] hydroxyurea 1,500 mg PO DAILY 05/20/21 [History Last Taken Unknown] lisinopril 2.5 mg PO DAILY 05/20/21 [History Last Taken Unknown] omeprazole 20 mg PO DAILY 05/20/21 [History Last Taken Unknown] rivaroxaban [Xarelto] 20 mg PO DAILY 05/20/21 [History Last Taken Unknown] Allergy/AdvReac Type Severity Reaction Status Date / Time Unable to Assess Allergy Verified 05/20/21 16:48 Family History unable to obtain Surgical History (Updated 05/20/21 @ 16:[address] Osiel Pedraza DO) History of Whipple procedure Surgical History unable to obtain Social History (Updated 05/20/21 @ 16:[address] Osiel Pedraza DO) current gender identity: male Smoking Status: Never smoker alcohol intake: current ROS ROS Narrative Review of systems was unobtainable due to patient's unconscious state on the ventilator. Vital Signs Vital Signs Vital Signs: 05/20/21 16:37 05/20/21 16:39 05/20/21 16:43 Temperature 98 F Temperature Source Temporal Pulse Rate 79 106 H Respiratory Rate 7 L 13 Respiratory Effort Mechanically Ventilated Blood Pressure 144/91 H Blood Pressure Mean 108 Pulse Ox 89 100 Oxygen Delivery Method Room Air Mechanical Ventilator Fraction of Inspired Oxygen (FIO2) 05/20/21 16:47 05/20/21 17:12 05/20/21 17:27 Temperature 98 F Temperature Source Temporal Pulse Rate 82 82 78 Respiratory Rate 18 18 16 Respiratory Effort Blood Pressure 174/97 H 174/97 H 179/164 H Blood Pressure Mean 122 122 169 Pulse Ox 100 100 98 Oxygen Delivery Method Mechanical Ventilator Mechanical Ventilator Mechanical Ventilator Fraction of Inspired Oxygen (FIO2) 05/20/21 17:30 05/20/21 17:32 05/20/21 18:00 Temperature 96.9 F L Temperature Source Core Pulse Rate 78 79 88 Respiratory Rate 16 14 14 Respiratory Effort Blood Pressure 179/164 H 147/127 H Blood Pressure Mean 169 133 Pulse Ox 98 97 96 Oxygen Delivery Method Mechanical Ventilator Mechanical Ventilator Fraction of Inspired Oxygen (FIO2) 100 05/20/21 18:02 05/20/21 18:18 05/20/21 18:29 Temperature 97.5 F L 97.4 F L Temperature Source Core Core Pulse Rate 83 78 76 Respiratory Rate 20 H 102 H 14 Respiratory Effort Blood Pressure 102/69 85/57 L 96/67 Blood Pressure Mean 80 66 76 Pulse Ox 94 94 97 Oxygen Delivery Method Mechanical Ventilator Mechanical Ventilator Mechanical Ventilator Fraction of Inspired Oxygen (FIO2) Weight Weight: 77.1 kg Body Mass Index (BMI) 25.1 Physical Exam Const Constitutional Narrative: Patient is sedated and on the ventilator, he does respond to painful stimuli HEENT normocephalic and head/scalp atraumatic Eyes PERRL and conjunctivae normal Neck no JVD and no carotid bruits Resp normal respiratory effort, no retractions, no use of accessory muscles and clear to auscultation bilaterally Cardio regular rate, regular rhythm, S1 normal heart sound, S2 normal heart sound, no murmurs and no rub GI normal to inspection, nondistended, normoactive bowel sounds, soft to palpation and non-distended Extremity normal to inspection and no clubbing, cyanosis or edema Skin no rashes or lesions noted, no wounds, skin turgor normal and no jaundice Neuro Neuro Narrative: Patient is sedated and on the ventilator at this time Psych Psych Narrative: Patient is sedated and on the ventilator at this time Results Lab / Micro Data Result Diagrams: 05/20/21 16:40 05/20/21 16:40 Labs: Laboratory Results - last 24 hr 05/20/21 16:40: WBC 6.9, RBC 3.66 L, Hgb 14.8, Hct 42.5, MCV 116.1 H, MCH 40.4 H, MCHC 34.8, RDW Std Deviation 62.8 H, RDW Coeff of Maryam 14.6, Plt Count 557 H, MPV 9.3, Immature Gran % (Auto) 0.600, Neut % (Auto) 62.7, Lymph % (Auto) 27.7, Garrett % (Auto) 8.0, Eos % (Auto) 0.1, Baso % (Auto) 0.9, Absolute Neuts (auto) 4.3, Absolute Lymphs (auto) 1.90, Nucleated RBC % 0 05/20/21 16:40: PT 14.0, INR 1.1, APTT 36.8 H 05/20/21 16:40: Sodium 142, Potassium 3.6, Chloride 108 H, Carbon Dioxide 25.0, Anion Gap 9, BUN 9, Creatinine 1.05, Estim Creat Clear Calc 69.20, Est GFR (MDRD) Af Amer 91, Est GFR (MDRD) Non-Af 75, BUN/Creatinine Ratio 8.6 L, Glucose 152 H, Calcium 9.2, Troponin I High Sens 6 05/20/21 16:40: Ethyl Alcohol 368.0 H* Micro: Microbiology 05/20/21 17:45 Nasal Secretion SARS-CoV-2 Antigen (Rapid) - Final ABG Data ABG results: ABG 05/20/21 17:43 Specimen Type ART Sample Site R Brach pH 7.31 L Bicarbonate Actual 21.4 L Total CO2 23 Base Excess -5 L O2 Saturation 99 O2 % 60 ABG pCO2 42.5 ABG pO2 146 H Eduardo Test N/A Respiration Rate 14 O2 Delivery Device Adult Vent Vent Mode AC Tidal Volume 450 POC PEEP [address] 05/20/21 16:37 IMPRESSION: 1. No acute findings. 2. Chronic left cerebellar lacunar infarcts. Electronically Signed: Suyapa Padilla MD at 17:06 EDT Tel , Service support , ADDENDUM: 05/20/21 1731 IMPRESSION: 1. No acute findings. 2. Chronic left cerebellar lacunar infarcts. N.B. : The above Results were Read Back by Suyapa Padilla MD to Osiel Pedraza MD , , and understanding confirmed on 05/20/2021 17:24:52 (ET). Electronically Signed: Suyapa Padilla MD at 17:06 EDT Tel , Service support , Head/Neck CTA 05/20/21 16:48 IMPRESSION: Normal CTA Head and neck with contrast. Electronically Signed: Suyapa Padilla MD at 17:38 EDT Tel , Service support , ADDENDUM: 05/20/21 4177 IMPRESSION: Normal CTA Head and neck with contrast. N.B. : The above Results were Read Back by Suyapa Padilla MD to Osiel Pedraza MD, MD, and understanding confirmed on 05/20/2021 17:42:53 (ET). Electronically Signed: Suyapa Padilla MD at 17:38 EDT Tel , Service support , Chest X-Ray 05/20/21 17:20 IMPRESSION: ET tube terminates 1.5 cm above the richa. No acute findings. Electronically Signed: Suyapa Padilla MD at 17:59 EDT Tel , Service support , Assessment & Plan Assessment/Plan (1) Encephalopathy acute: PLAN: 1. Acute mental status change-etiology unclear at this point, possibly due to an acute ischemic stroke, patient will be admitted to ICU, he will be seen by critical care, he will need further neurological imaging such as an MRI if possible tomorrow or repeat CT to try to confirm if he has had an ischemic stroke. Again, due to the fact the patient was on Xarelto, he was not a candidate for TPA. #2 acute respiratory failure secondary to #1-patient was intubated to the emergency room, he will remain on the ventilator at this time #3 possible aspiration-patient was placed on Unasyn 3 g every 6 hours #4 history of thrombocytosis #5 past history of pancreatic cancer-patient underwent a Whipple's procedure several years ago, he has been free of recurrent pancreatic cancer for 2 years. #6 alcohol intoxication Charges/Coding Visit Charges Inpatient E&M: 02706 Init Hosp L3
[2021-05-20] MEDS: fentaNYL 100 MCG/2 ML Ampul IV (20:23)
--- NOTE | 2021-05-20 20:58 | NURSING ---
patient is intubated and sedated at this time
[2021-05-20] MEDS: Chlorhexidine 15 ML PO (21:56)
[2021-05-20] MEDS: 0.9% Normal Saline 1,000 ML 100 ML IV (21:56)
[2021-05-20 22:06] LABS: Troponin-I HS 9 pg/mL (3.0-78.0)
[2021-05-20] MEDS: Pantoprazole Sodium 40 MG Tablet PO (22:43)
[2021-05-21] VITALS (18 sets, daily range): BP systolic 65–133; BP diastolic 49–92; PULSE 52–67; RESP 10–20; TEMP 36.6–37.6; O2SAT 92–99
--- NOTE | 2021-05-21 01:01 | NURSING ---
fentanyl stopped at [address] Joseph for hypotension
[2021-05-21 03:27] LABS: Absolute Lymphocyte Count 0.76 X10^3/uL (0.83-4.51); Basophil# 0.02 X10^3/uL; Basophil% 0.4 % (0-1); Eosinophil# 0.19 X10^3/uL; Eosinophils% 3.4 % (0-5); Hemoglobin 11.6 g/dL (13.0-16.5); Lymphocyte # 0.76 X10^3/ul (0.83-4.51); Lymphocyte % 13.5 % (19-41); Mean Corp Hgb Conc 34.1 g/dL (32-36); Mean Corpuscular Hgb 39.9 pg (27.0-32.0); Mean Corpuscular Volume 116.8 fL (80-94); Mean Platelet Vol. 9.1 fl (6.2-12.0); Monocyte# 0.58 X10^3/uL; Monocyte% 10.3 % (0-10); NRBC Flagged by Analyzer 0 % (0-5); Neutrophil # 4.04 X10^3/uL (2.7-7.7); Neutrophil % 71.7 % (47-70); Platelet Count 358 K/mm3 (150-450); RBC Distribution Width CV 14.5 % (11.6-14.6); RBC Distribution Width SD 62.8 fl (35.1-43.9); Red Blood Count 2.91 M/mm3 (4.6-6.2); White Blood Count 5.6 K/mm3 (4.4-11.0)
[2021-05-21 03:43] LABS: Troponin-I HS 8 pg/mL (3.0-78.0)
[2021-05-21 03:48] LABS: ALB/GLOB Ratio 0.9 RATIO (0.9-2.4); AST(SGOT) 22 U/L (15-37); Alanine Aminotransfer ALT/SGPT 33 U/L (16-61); Albumin, Serum 2.9 g/dL (3.2-5.0); Alkaline Phosphatase 88 U/L (45-117); Anion Gap 9 (5-15); BUN 7 mg/dL (7-18); BUN/Creat Ratio 8.6 RATIO (10-20); Calcium,Total 7.1 mg/dL (8.5-10.1); Chloride 113 mmol/L (98-107); Creatinine, Serum 0.81 mg/dL (0.70-1.30); EST Glomerular Filtration Rate 101 mL/min (>60); Est Glom Filt Rate - Afr Amer 123 mL/min (>60); Estimated Creatinine Clearance 86.79 ml/min; Globulin 3.2 g/dL (2.2-4.2); Glucose 119 mg/dL (74-106); Potassium 3.9 mmol/L (3.5-5.1); Protein, Total 6.1 g/dL (6.4-8.2); Sodium Level 143 mmol/L (136-145)
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
[2021-05-21] MEDS: 0.9% Normal Saline 1,000 ML 100 ML IV (08:41)
[2021-05-21] MEDS: Pantoprazole Sodium 40 MG Tablet PO (09:29)
[2021-05-21] MEDS: Enoxaparin 40 MG/0.4 ML Syringe SC (09:29)
[2021-05-21] MEDS: Aspirin 81 MG TAB.CHEW GT (09:29)
--- NOTE | 2021-05-21 10:02 | PCS.PANDOC ---
PANDEMIC DOCUMENTATION INITIATED: Date: 03/17/2021 Time: 190
--- NOTE | 2021-05-21 10:05 | CASEMGMT ---
RN CM Face to Face with patient for initial transition planning/care coordination assessment. RN CM introduced self and role at [facility]. Patient lying in bed, alert and oriented. Patient willing to participate in assessment and is able to answer all questions appropriately. Care providers, pharmacy, and demographics verified. Patient wishes to discharge home, denies need for home health at this time. Patient states he has no further needs or concerns at this time. CM to follow for discharge planning needs that may arise. PCP: Vladislav Specialists: Saran social services technician Preferred Pharmacy: [facility] Insurance: MMO, MCR A Prescription Benefit: yes Living Will/HPOA: yes, Caroline Lai LNOK: Living Arrangements: Patient lives with in a single story home with 1 step to enter the home. Patient states he is independent at home. Transportation: self, DME/HHC: Patient states he has shower chair, raised toilet, cane, walker at home. Patient states he has had [facility] in the past. Disposition Plan: Patient to discharge home with family support and follow-up plans in place. Eloise DESOUZA, RN, CM
--- NOTE | 2021-05-21 17:51 | PN.HOSP_ITS ---
Subjective Subjective Patient apparently was quite intoxicated on admission with a blood alcohol level greater than 300. He was able to be extubated this morning. Upon exam the patient denied consistent heavy drinking and states that if he drinks more than 3 beers he feels fairly horrible the next day. He denies daily drinking althou gh does admit to drinking on his day of admission. He does not remember anything that happened last evening. He is showing some no signs of detox at this time and is asking for something to eat. Objective Data Objective Data Vital Signs: Vital Signs Temp Pulse Resp BP Pulse Ox 97.8 F 67 20 H 109/64 92 05/21/21 14:00 05/21/21 14:00 05/21/21 14:00 05/21/21 14:00 05/21/21 14:00 Oxygen Flow Rate (L/min) 2 Oxygen Delivery Method Room Air Weight: 82.9 kg Body Mass Index (BMI) 26.6 Intake & Output: Intake and Output for Last 24 Hours 05/19/21 05/20/21 05/21/21 23:59 23:59 23:59 Intake Total 149.89 / 155.79 2303.63 / 2303.63 Output Total 75 / 75 1400 / 1400 Balance 74.89 / 80.79 903.63 / 903.63 Lab / Micro Data Result Diagrams: 05/21/21 03:15 05/21/21 03:15 Labs: Laboratory Results - last 24 hr 05/20/21 16:40: Ethyl Alcohol 368.0 H* 05/20/21 21:35: Troponin I High Sens 9 05/21/21 03:15: Troponin I High Sens 8 05/21/21 03:15: WBC 5.6, RBC 2.91 L, Hgb 11.6 L, Hct 34.0 L, MCV 116.8 H, MCH 39.9 H, MCHC 34.1, RDW Std Deviation 62.8 H, RDW Coeff of Maryam 14.5, Plt Count 358, MPV 9.1, Immature Gran % (Auto) 0.700, Neut % (Auto) 71.7 H, Lymph % (Auto) 13.5 L, [place] % (Auto) 10.3 H, Eos % (Auto) 3.4, Baso % (Auto) 0.4, Absolute Neuts (auto) 4.0, Absolute Lymphs (auto) 0.76 L, Nucleated RBC % 0 05/21/21 03:15: Sodium 143, Potassium 3.9, Chloride 113 H, Carbon Dioxide 21.0, Anion Gap 9, BUN 7, Creatinine 0.81, Estim Creat Clear Calc 86.79, Est GFR (MDRD) Af Amer 123, Est GFR (MDRD) Non-Af 101, BUN/Creatinine Ratio 8.6 L, Glucose 119 H, Calcium 7.1 L, Total Bilirubin 0.30, AST 22, ALT 33, Alkaline Phosphatase 88, Total Protein 6.1 L, Albumin 2.9 L, Globulin 3.2, Albumin/Globul in Ratio 0.9 Micro: Microbiology 05/20/21 17:35 Sputum, Tracheal Aspirate Gram Stain - Final 05/20/21 17:45 Nasal Secretion SARS-CoV-2 Antigen (Rapid) - Final Radiography Diagnostic Testing: Radiology Impression Chest X-Ray 05/20/21 17:20 IMPRESSION: ET tube terminates 1.5 cm above the richa. No acute findings. Electronically Signed: Suyapa Padilla MD at 17:59 EDT Tel , Service support , Physical Exam Const alert, oriented x3, no apparent distress and average body habitus Constitutional Narrative: Overweight upper middle-aged white male sitting up in bed, appears comfortable, nontoxic, on room air Exam Limitations: no limitations Nutritional Appearance: overweight HEENT head/scalp atraumatic and moist oral mucous membranes HEENT Narrative: No thrush, no bite randhawa on tongue Head and Scalp: normocephalic Eyes PERRL, EOMs intact bilaterally and conjunctivae normal Neck supple Neck Narrative: Trachea midline Resp normal respiratory effort, no retractions, no use of accessory muscles and clear to auscultation bilaterally Auscultation: Negative for crackles, rales, rhonchi or wheezes Cardio regular rate, regular rhythm, S1 normal heart sound, S2 normal heart sound, no murmurs, no rub, no gallops, no clicks and no JVD GI normal to inspection, nondistended, normoactive bowel sounds, soft to palpation, non-tender and non-distended Extremity no clubbing, cyanosis or edema Peripheral Pulses: Yes pulses 2+ throughout Neuro oriented x3, CN's II-XII intact bilaterally, moves all extremities, no focal motor deficits and no sensory deficits noted Sensorium / Orientation: awake and alert Speech: speech normal Motor Exam: strength 5/5 throughout Psych affect normal Assessment & Plan Assessment/Plan (1) Acute respiratory failure: (2) Encephalopathy acute: (3) Alcohol intoxication: (4) Aspiration into airway: PLAN: Acute hypoxic respiratory failure -Resolved -Patient was extubated on the a.m. of 05/21/2021 and is now on room air with sats 92 to 97% Aspiration -We will continue Unasyn at this time and likely discharge with a course of Augmentin [place] for aspiration pneumonia Toxic encephalopathy -Suspect this was related to acute intoxication -Blood alcohol on admission was 368 -Patient denies that he is a heavy drinker at baseline -His encephalopathy is resolved and he is back to baseline -MRI discontinued his neurological exam is negative after extubation Acute alcohol intoxication -Add thiamine and folate -No signs for alcohol withdraw -We will monitor clinically for signs of withdrawal but patient states that he is not a heavy drinker at baseline and has never had withdrawal symptoms -We will have to discuss problematic drinking prior to discharge as he was driving with a blood alcohol of 368 History of atrial fibrillation -Continue carvedilol -Continue Xarelto Hypertension -Restart home medication History of GERD -Continue omeprazole History of pancreatic cancer status post Whipple -No current issues History of plaque psoriasis -Continue home medications at discharge Depression -Continue citalopram DVT prophylaxis -On Xarelto CODE STATUS -Full code Charges/Coding Visit Charges Inpatient E&M: 19942 Subs Hosp L2
[2021-05-21] MEDS: Pantoprazole Sodium 20 MG Tablet PO (21:08)
[2021-05-21] MEDS: Rivaroxaban 20 MG Tablet PO (21:08)
[2021-05-21] MEDS: Lisinopril 2.5 MG Tablet PO (21:08)
[2021-05-21] MEDS: Carvedilol 3.125 MG TABLET PO (21:08)
[2021-05-21] MEDS: Hydroxyurea 500 MG Capsule 1500 MG PO (21:40)
[2021-05-22 02:21] VITALS: BP 126/77; PULSE 54; RESP 18; TEMP 36.6; O2SAT 95
--- NOTE | 2021-05-22 06:37 | PCM.PN.INT ---
Assessment & Plan Assessment/Plan (1) Acute respiratory failure: (2) Alcohol intoxication: (3) Encephalopathy acute: PLAN: RECOMMENDATIONS: 1. Okay to transition to Augmentin to complete 7-day treatment course. 2. Encourage incentive spirometer use and mobilize patient as tolerated. 3. The patient is medically stable for transfer out of the intensive care unit. 4. Given the patient's lack of further ICU or pulmonary needs, will sign off. IMPRESSIONS: 1. Acute respiratory failure Resolved. The patient was initially intubated in the emergency department over concerns for airway protection. In addition, the patient did have a witnessed aspiration event. The etiology for the patient's respiratory failure was felt to be due to encephalopathy that developed as a consequence of acute alcohol intoxication. The patient was able to be extubated within 24 hours. He is currently maintaining appropriate oxygen saturations on room air. At this time, the patient's antibiotics can be transitioned to Augmentin to finish a 7-day treatment course. Encourage incentive spirometer use and mobilize patient as tolerated. 2. Encephalopathy Resolved. I do suspect that the patient's presenting encephalopathy was likely secondary to acute alcohol intoxication, especially in light of his significantly elevated ethyl alcohol level. With supportive care, the patient's mentation has improved. Prior head imaging was unremarkable. Given that the patient does not demonstrate any neurologic sequelae, I do not see that any additional neurologic work-up needs to be undertaken. 3. History of atrial fibrillation/pancreatic cancer status post Whipple procedure/hypertension/GERD Complicates care, management, recovery and prognosis. Okay to resume home medications. This note was generated with E-Generator dictation software. It may contain incorrect words, spelling, and punctuation that were not noted in checking the note before signing. Subjective Subjective The patient was seen and examined at the bedside this morning. Events from the last 24 hours have been reviewed. The patient is currently afebrile, hemodynamically stable and maintaining appropriate oxygen saturations on room air. No overnight issues were identified by the nursing staff. Objective Data Objective Data The patient's most recent lab work, culture data and imaging studies have all been personally reviewed. Sputum culture is pending. Rapid coronavirus antigen testing was negative. Vital Signs: Vital Signs Temp Pulse Resp BP Pulse Ox 98 F 54 L 18 126/77 H 95 05/22/21 02:21 05/22/21 02:21 05/22/21 02:21 05/22/21 02:21 05/22/21 02:21 Oxygen Flow Rate (L/min) 2 Oxygen Delivery Method Room Air Weight: 82.7 kg Body Mass Index (BMI) 26.6 Intake & Output: Intake and Output for Last 24 Hours 05/20/21 05/21/21 05/22/21 23:59 23:59 23:59 Intake Total 149.89 / 155.79 2895.63 / 2895.63 232 / 232 Output Total 75 / 75 1650 / 1650 250 / 250 Balance 74.89 / 80.79 1245.63 / 1245.63 -18 / -18 Lab / Micro Data Attestation: I reviewed the patient's lab results. Result Diagrams: 05/21/21 03:15 05/21/21 03:15 Micro: Microbiology 05/20/21 17:35 Sputum, Tracheal Aspirate Gram Stain - Final 05/20/21 17:45 Nasal Secretion SARS-CoV-2 Antigen (Rapid) - Final Physical Exam Const alert and no apparent distress General Appearance: cooperative HEENT normocephalic, head/scalp atraumatic and moist oral mucous membranes Eyes PERRL, EOMs intact bilaterally and conjunctivae normal Neck supple General: trachea midline Chest inspection of chest normal Resp normal respiratory effort Auscultation: Negative for rales, rhonchi or wheezes Cardio regular rate and regular rhythm GI normal to inspection, nondistended, normoactive bowel sounds Extremity no clubbing, cyanosis or edema Skin no rashes or lesions noted Neuro moves all extremities and no focal motor deficits Psych cooperative and affect normal Charges/Coding Visit Charges Inpatient E&M: 57098 Subs Hosp L2
[2021-05-22 07:56] VITALS: BP 124/78; PULSE 48; RESP 18; TEMP 36; O2SAT 100
[2021-05-22] MEDS: Aspirin 81 MG TAB.CHEW PO (08:15)
[2021-05-22] MEDS: Rivaroxaban 20 MG Tablet PO (08:15)
[2021-05-22 08:17] VITALS: BP 118/67; BP 125/99; BP 149/72; PULSE 48; PULSE 59; PULSE 67
--- NOTE | 2021-05-22 11:11 | PCM.DC.SUM ---
Providers Date of Admission: 05/20/21 Primary Care Physician: Dr. Lorna Loomis, DO Consultations 05/20/21 21:29 Consult: Supervisor Intermediates / Pulmonary Medicine Routine Consulting Provider: [facility] Reason for Consult: respiratory failure EMERGENT Consult: No MD Notified: Yes Date Notified: 05/20/21 Time Notified: 18:53 Method of Notification: Text Reason For Visit: RESPIRATORY FAILURE, ASPIRATIN, POSSIBLE ISCHEMIC Diagnosis Discharge Diagnosis (1) Acute respiratory failure: Status: Acute Code(s): J96.00 - Acute respiratory failure, unspecified whether with hypoxia or hypercapnia (2) Alcohol intoxication: Status: Acute Code(s): F10.929 - Alcohol use, unspecified with intoxication, unspecified (3) Encephalopathy acute: Status: Acute Code(s): G93.40 - Encephalopathy, unspecified Medications at Discharge Home Medications Aspir-81 81 mg PO/SL BID 05/20/21 Xarelto 20 mg PO DAILY 05/20/21 carvedilol 3.25 mg PO DAILY 05/20/21 citalopram 10 mg PO DAILY 05/20/21 hydroxyurea 1,500 mg PO DAILY 05/20/21 lisinopril 2.5 mg PO DAILY 05/20/21 omeprazole 20 mg PO DAILY 05/20/21 Skyrizi 150 mg SUBCUT QMONTH 05/21/21 Hospital Course Operations None Procedures Intubation Summary of Care Provided Minutes Spent on Discharge: 36 Hospital Course: Mr. Lai is a 66-year-old white male who presented to the emergency department at [facility] on the evening of 05/20/2021 with an episode of unresponsiveness while operating his car. He had evidently had 2 margaritas and then went out to dinner with a friend and drank at least 1 more yoel while he was there. He was in the process of driving home and we get a history that he had a rather acute unresponsiveness episode where he lost control of his vehicle. The passenger was able to stop the vehicle without any issues and EMS was contacted. The patient was vomiting profusely on their arrival. He was initially documented to have a GCS of 7 and therefore there were concerns about him protecting his airway and the decision was made for emergent intubation. On admission the patient did not have any leukocytosis, his INR was 1.1 and his post intubation ABG showed a pH of 7.3 with a PCO2 of 42 and a PO2 of 146. His BMP showed mild elevation in his serum creatinine at 1.05 when compared to baseline. His glucose was within normal limits and his LFTs were normal as well. His troponins were cycled on admission and all were negative. His blood alcohol was noted to be over 4 times the legal limit at 368. A CT of his head revealed no acute findings but did show lacunar left cerebellar infarcts which I suspect are related to his previous history of atrial fibrillation. A CTA of his head and neck were performed and showed no vascular abnormalities. A chest x-ray was performed and showed no acute cardiopulmonary process. Patient received IV fluids for hydration and was started on IV Unasyn empirically for anticipated aspiration and he was admitted to the intensive care unit for further management. The day following admission the patient was hemodynamically stable and did well on a spontaneous breathing trial. His FiO2 requirements on mechanical ventilation with 30% and his PEEP was at 5. He was therefore extubated. At that time he indicated he thought he only drank 3 margaritas prior to admission but did not really recall the events leading up to his hospitalization. He denied any consistent alcohol use and reported that he was only a social drinker. He was monitored clinically for 24 hours post extubation and was able to be weaned to room air without any oxygen desaturations. He had no cough or sputum production and therefore antibiotics were discontinued upon discharge. His neurological exam was completely normal and therefore an MRI that had been initially ordered was discontinued by the mottler machine feeder given his normal neuro exam. He did not have any arrhythmias on telemetry. He had no signs of seizure on admission including biting of his tongue, bowel or bladder loss and has no history of seizure disorder although he does take an SSRI and in combination with alcohol use seizure threshold would be decreased.given the fact that he had no symptoms an EEG was deferred at this time as well. The etiology of his event is not completely clear although he did have a significantly elevated blood alcohol level which indicates that he drink more than indicating or the margaritas he drank were extraordinarily strong. Given his blood alcohol level on admission I suspect, although not reported, that he had impairment prior to getting his car. He was discharged home in stable condition and did show remorse for his drinking. He is to follow-up with his PCP in 1 week. Discharge diagnoses: Acute respiratory failure secondary to depressed GCS-resolved Toxic encephalopathy History of paroxysmal atrial fibrillation History of pancreatic cancer status post Whipple Hypertension GERD Psoriasis/psoriatic arthritis Physical Exam Const alert, oriented x3, no apparent distress and average body habitus Constitutional Narrative: Overweight upper middle-aged white male sitting up in chair at the bedside, appears comfortable, nontoxic, on room air with no signs of any respiratory distress General Appearance: cooperative, comfortable, well kempt and well developed Orientation / Consciousness: awake Exam Limitations: no limitations Nutritional Appearance: overweight HEENT normocephalic, head/scalp atraumatic, hearing grossly normal bilaterally and moist oral mucous membranes Eyes PERRL, EOMs intact bilaterally and conjunctivae normal Neck supple, no JVD and no carotid bruits Neck Narrative: Trachea midline Resp normal respiratory effort, no retractions, no use of accessory muscles and clear to auscultation bilaterally Auscultation: Negative for crackles, rales, rhonchi or wheezes Cardio regular rate, regular rhythm, S1 normal heart sound, S2 normal heart sound, no murmurs, no rub, no gallops, no clicks and no JVD GI normal to inspection, nondistended, normoactive bowel sounds, soft to palpation, non-tender and non-distended Extremity normal to inspection and no clubbing, cyanosis or edema Skin no rashes or lesions noted, no wounds, skin turgor normal and no jaundice Neuro oriented x3, CN's II-XII intact bilaterally, moves all extremities, no focal motor deficits and no sensory deficits noted Neuro Narrative: Patient is sedated and on the ventilator at this time Sensorium / Orientation: awake and alert Speech: speech normal Motor Exam: strength 5/5 throughout Psych affect normal Psych Narrative: Very pleasant and appropriately interactive Weight / BMI Weight Weight: 82.7 kg Body Mass Index (BMI) 26.6 ABG / Lab / Microbiology Data Result Diagrams: 05/21/21 03:15 05/21/21 03:15 Microbiology: Microbiology 05/20/21 17:35 Sputum, Tracheal Aspirate Gram Stain - Final 05/20/21 17:35 Sputum, Tracheal Aspirate Respiratory Culture - Preliminary Appears to be normal respiratory tri. Further studies to follow. 05/20/21 17:45 Nasal Secretion SARS-CoV-2 Antigen (Rapid) - Final D/C Instructions Discharge Diet: Low fat / Low cholesterol Discharge Activity: Return to Normal Activity Return to work on: 05/23/21 Meaningful Use Info Meaningful Use Diagnoses (Choose all that apply): None applicable Discharge Plan Admission Admit Date/Time: 05/20/21 18:43 Primary Reason for Your Visit: Acute mental status change Attending Provider: Mary Davis Primary Care Provider: Lorna Loomis Consulting Providers: Ata Gardner ; Alfred Lantigua ; Shelley Sheppard PRE PRESS MANAGER Discharge Orders/Prescriptions Prescriptions: Continued hydroxyurea 500 mg capsule 1,500 mg PO DAILY RF: 0 omeprazole 40 mg capsule,delayed release(DR/EC) 20 mg PO DAILY RF: 0 carvedilol 3.125 mg tablet 3.25 mg PO DAILY RF: 0 citalopram 20 mg tablet 10 mg PO DAILY RF: 0 lisinopril 2.5 mg tablet 2.5 mg PO DAILY RF: 0 Xarelto 20 mg tablet 20 mg PO DAILY RF: 0 Aspir-81 81 mg PO/SL BID RF: 0 Skyrizi 150mg/1.66mL(75 mg/0.83 mL x2) syringe kit 150 mg SUBCUT QMONTH RF: 0 Referrals / Follow Up: Lorna Loomis DO [Primary Care Provider] - Within 2 Weeks Disposition Disposition (needs filled in before D/C Order can be placed): Home, Self Care Charges/Coding Visit Charges Inpatient E&M: 84321 Disch Hosp
[2021-05-22 11:22] VITALS: BP 138/81; PULSE 45; RESP 16; TEMP 36.1; O2SAT 100
--- NOTE | 2021-05-22 11:25 | NURSING ---
Refused morning medications stating that he prefers to take them at night
--- NOTE | 2021-05-22 11:30 | DCINST_ITS ---
Discharge Instructions Diet Discharge Diet: Low fat / Low cholesterol Activity Discharge Activity: Return to Normal Activity Return to work on:: 05/23/21 May resume sexual activity in: No Restrictions Follow Up Care Test Results: Test results from this visit will be discussed in further detail at your follow-up appointment, if applicable. Discharge Plan Admission Admit Date/Time: 05/20/21 18:43 Primary Reason for Your Visit: Acute mental status change Attending Provider: Mary Davis Primary Care Provider: Lorna Loomis Consulting Providers: Ata Gardner ; Alfred Lantigua ; Shelley Sheppard KOSHER DI[employer]ARY SERVICE MANAGER Discharge Orders/Prescriptions Prescriptions: Continued hydroxyurea 500 mg capsule 1,500 mg PO DAILY RF: 0 omeprazole 40 mg capsule,delayed release(DR/EC) 20 mg PO DAILY RF: 0 carvedilol 3.125 mg tablet 3.25 mg PO DAILY RF: 0 citalopram 20 mg tablet 10 mg PO DAILY RF: 0 lisinopril 2.5 mg tablet 2.5 mg PO DAILY RF: 0 Xarelto 20 mg tablet 20 mg PO DAILY RF: 0 Aspir-81 81 mg PO/SL BID RF: 0 Skyrizi 150mg/1.66mL(75 mg/0.83 mL x2) syringe kit 150 mg SUBCUT QMONTH RF: 0 Referrals / Follow Up: Lorna Loomis DO [Primary Care Provider] - Within 2 Weeks Disposition Disposition (needs filled in before D/C Order can be placed): Home, Self Care
--- NOTE | 2021-05-23 15:04 | CASEMGMT ---
JUAN BERGERON Discharge Follow-up Phone Call: NAJMA: 10 Strata: 3 Call Date: 05/23/21 Discharge Date: 05/22/21 Time of Call: 1505 Duration: 1 min Admitting Diagnosis: Resp failure JUAN BERGERON attempted to complete follow-up phone call after recent hospitalization. No answer, voice message left with return contact information.
== END 2021-05-22 11:35 | disposition home or self-care (01) | DRG 917 ==
LOC: ED 18:55 → ICU 19:06
PROVIDERS: Admitting Provider Internal Medicine; Emergency Provider Emergency Medicine; PCP Internal Medicine; Visit Provider Internal Medicine
DX: T51.0X1A Toxic effect of ethanol, accidental (unintentional), initial encounter (principal); J96.00 Acute respiratory failure, unspecified whether with hypoxia or hypercapnia; G92.8 Other toxic encephalopathy; T17.218A Gastric contents in pharynx causing other injury, initial encounter; X58.XXXA Exposure to other specified factors, initial encounter; Y92.538 Other ambulatory health services establishments as the place of occurrence of the external cause; F10.129 Alcohol abuse with intoxication, unspecified; Y90.8 Blood alcohol level of 240 mg/100 ml or more; I48.0 Paroxysmal atrial fibrillation; I10 Essential (primary) hypertension; K21.9 Gastro-esophageal reflux disease without esophagitis; L40.50 Arthropathic psoriasis, unspecified; D75.839 Thrombocytosis, unspecified; F32.A Depression, unspecified; Z23 Encounter for immunization; Z90.411 Acquired partial absence of pancreas; Z79.82 Long term (current) use of aspirin; Z79.01 Long term (current) use of anticoagulants; Z79.899 Other long term (current) drug therapy; Z85.07 Personal history of malignant neoplasm of pancreas; Z86.73 Personal history of transient ischemic attack (TIA), and cerebral infarction without residual deficits
CPT/HCPCS: 31500; 31720; 36600; 51702; 70450; 70496; 70498; 71045; 80048; 80053; 82077; 82803; 84484; 85025; 85610; 85730; 87070; 87205; 87426; 93005; 94002; 94003; 94660; 97162; 97802; 99251; 99285; J7030; J7040; Q9967; A4216; G0463; J0295; J3010

== ENCOUNTER → 2021-06-02 12:38 | Outpatient (CLI) | payer OTHER, MEDICARE, SELFPAY ==
--- NOTE | 2021-06-02 12:41 | ECHOD_ITS ---
Reason For Study: SYNCOPE Procedure This was a 2D Doppler, Color Flow transthoracic echocardiogram. The exam was of adequate technical quality. Exam performed in department. Left Ventricle Normal LV size. Left ventricular systolic function is normal. The estimated ejection fraction is 55 %. There is evidence of diastolic dysfunction. No regional wall motion abnormalities noted. Right Ventricle Normal RV size. Normal systolic function. Atria The left atrium is mildly enlarged. Normal right atrium. No doppler evidence for ASD. Mitral Valve There is mild to moderate mitral annular calcification. Extension of the mitral annular calcification on the base of the posterior mitral valve leaflet. Mild diffuse mitral valve thickening. Mild (1+) mitral valve insufficiency. Tricuspid Valve Normal tricuspid valve. Mild tricuspid valve insufficiency. Right ventricular systolic pressure estimated to be 35 mmHg. Aortic Valve Trisinus/trileaflet aortic valve. Mild diffuse aortic valve thickening. Mild focal aortic valve calcification. Pulmonic Valve The pulmonic valve is not well visualized. Trivial eccentric pulmonic valve insufficiency. Great Vessels Normal sized aortic root. Pericardium/Pleural No pericardial effusion. MMode/2D Measurements & Calculations LVIDd: 5.2 cm IVSd: 1.2 cm Ao root diam: 3.4 cm LVIDs: 3.2 cm LVPWd: 1.2 cm RVDd: 3.1 cm FS: 38.1 % LAV(MOD-bp): 88.7 ml LA A4 area: 24.9 cm2 LA dimension(2D): 4.8 cm LAV(MOD-bp) Indexed: 46.0 ml/m2 LAV(MOD-sp2): 85.6 ml LAV(MOD-sp4): 87.7 ml RA A4 area: 17.2 cm2 Time Measurements MV dec time: 0.25 sec Doppler Measurements & Calculations MV E max maged: 56.9 cm/sec Lat Peak E' Maged: 8.5 cm/sec Med Peak E' Maged: 5.9 cm/sec MV A max maged: 79.9 cm/sec E/E' lat: 6.7 E/E' med: 9.6 MV E/A: 0.71 Ao V2 max: 169.8 cm/sec LV V1 max: 103.9 cm/sec PA V2 max: 124.1 cm/sec Ao max P.5 mmHg LV V1 max P.3 mmHg PI dec slope: 187.5 cm/sec2 TR max maged: 281.3 cm/sec TR max P.7 mmHg ECHO/Echo Complete Interpretation Summary Left ventricular systolic function is normal. The estimated ejection fraction is 55 %. The left atrium is mildly enlarged. There is mild to moderate mitral annular calcification. Extension of the mitral annular calcification on the base of the posterior mitr al valve leaflet. Mild diffuse mitral valve thickening. Mild (1+) mitral valve insufficiency. Mild tricuspid valve insufficiency. Mild diffuse aortic valve thickening. Mild focal aortic valve calcification. Trivial eccentric pulmonic valve insufficiency. Right ventricular systolic pressure estimated to be 35 mmHg. There is evidence of diastolic dysfunction. Ordering Physician: Lorna Loomis Referring Physician: Lorna Loomis Performed By: Funmilayo Mac, MELLY, RVT
== END ==
PROVIDERS: PCP Internal Medicine; Referring Provider Internal Medicine; Visit Provider Internal Medicine
DX: I51.7 Cardiomegaly (principal); R55 Syncope and collapse; Z86.73 Personal history of transient ischemic attack (TIA), and cerebral infarction without residual deficits
CPT/HCPCS: 93306

== ENCOUNTER → 2021-12-09 | Outpatient (CLI) | payer MEDICARE, SELFPAY ==
[2021-12-09 14:23] LABS: Absolute Neutrophil Count 3.9 X10^3/uL (2.0-7.7); Basophil# 0.01 X10^3/uL; Basophil% 0.2 % (0-1); Hematocrit 38.7 % (40-54); Hemoglobin 13.7 g/dL (13.0-16.5); Lymphocyte % 10.6 % (19-41); Mean Corp Hgb Conc 35.4 g/dL (32-36); Mean Corpuscular Hgb 40.9 pg (27.0-32.0); Mean Corpuscular Volume 115.5 fL (80-94); Mean Platelet Vol. 9.8 fl (6.2-12.0); Monocyte# 0.33 X10^3/uL; NRBC Flagged by Analyzer 0 % (0-5); Neutrophil # 3.86 X10^3/uL (2.7-7.7); POSITIVE DIFFERENTIAL YES; Platelet Count 402 K/mm3 (150-450); RBC Distribution Width CV 13.4 % (11.6-14.6); RBC Distribution Width SD 57.8 fl (35.1-43.9); Red Blood Count 3.35 M/mm3 (4.6-6.2); White Blood Count 4.7 K/mm3 (4.4-11.0)
[2021-12-09 14:47] LABS: ALB/GLOB Ratio 1.2 RATIO (0.9-2.4); AST(SGOT) 23 U/L (15-37); Alanine Aminotransfer ALT/SGPT 37 U/L (16-61); Albumin, Serum 4.1 g/dL (3.2-5.0); Alkaline Phosphatase 86 U/L (45-117); Anion Gap 5 (5-15); BUN 12 mg/dL (7-18); BUN/Creat Ratio 13.9 RATIO (10-20); Chloride 102 mmol/L (98-107); Creatinine, Serum 0.86 mg/dL (0.70-1.30); EST Glomerular Filtration Rate 94 mL/min (>60); Est Glom Filt Rate - Afr Amer 114 mL/min (>60); Globulin 3.5 g/dL (2.2-4.2); Glucose 100 mg/dL (74-106); Potassium 4.4 mmol/L (3.5-5.1); Protein, Total 7.6 g/dL (6.4-8.2); Sodium Level 136 mmol/L (136-145); Thyroid Stim Hormone (TSH) 0.81 uIU/mL (0.358-3.74); Troponin-I HS 6 pg/mL (3.0-78.0)
[2021-12-09 14:48] LABS: Differential Indicated SCAN CRITERIA MET
[2021-12-09 14:50] LABS: Macrocytosis 2+; Platelet Estimate ADEQUATE (ADEQ)
== END | disposition home or self-care (01) ==
LOC: LABSPEC 14:15
PROVIDERS: PCP Internal Medicine; Visit Provider Internal Medicine
DX: I49.9 Cardiac arrhythmia, unspecified (principal)
CPT/HCPCS: 80053; 84443; 84484; 85025

== ENCOUNTER → 2022-01-21 | Outpatient (CLI) | payer MEDICARE, SELFPAY ==
--- NOTE | 2022-01-21 09:57 | PFTCOMP_ITS ---
COMPLETE PULMONARY FUNCTION TEST INTERPRETATION Brief HPI: Patient is a 66-year-old male, currently under the care of Dr. Loomis, who presents to [facility] for complete pulmonary function tests secondary to diagnosis of dyspnea. Respiratory therapist reports good effort and reproducible results. Interpretation: Forced expiration spirometry shows a mild large airways obstructive ventilatory defect with an FEV1 of 73% predicted. There is a significant bronchodilator response in FVC by strict ATS criteria. Spirograms are of good quality and plateau slowly, indicating slowly emptying areas of the lungs. Patient's prebronchodilator exhalation is only 4 seconds, likely underestimating FVC. The respiratory flow volume loop shows decreased expiratory flow rates at all lung volumes consistent with airway obstruction. Lung volumes by body plethysmography show a normal total lung capacity at 7.04 L, 111% predicted. FRC and RV are elevated out of proportion. Lung volume measurements are consistent with hyperinflation and air-trapping. Diffusion capacity by carbon monoxide is normal at 83% predicted. The airway resistance is slightly elevated. No previous pulmonary function tests were available for review. Impression: Partially reversible mild large airways obstructive ventilatory defect resulting in air trapping with hyperinflation, but preserved diffusion capacity
== END | disposition home or self-care (01) ==
PROVIDERS: PCP Internal Medicine; Referring Provider Internal Medicine; Visit Provider Internal Medicine
DX: R06.02 Shortness of breath (principal)
CPT/HCPCS: 94060; 94726; 94729